=== PATIENT | female | born 1955 | race Caucasian/White ===

== ENCOUNTER 2020-01-07 12:09 | Outpatient (CLI) | payer OTHER, SELFPAY ==
[2020-01-07 12:32] LABS: Hematocrit 38.5 % (37.0-47.0); Hemoglobin 11.6 g/dL (12.0-15.0); Mean Corpuscular HGB Conc 30.1 g/dl (32-36); Mean Corpuscular Hemoglobin 26.8 pg (26-34); Mean Corpuscular Volume 88.9 fl (80-100); Mean Platelet Volume 10.2 fl (7.4-10.4); Platelet Count Result 349 k/mm3 (150-375); Red Blood Count 4.33 M/mm3 (4.2-5.4); Red Cell Distribution Width 15.9 % (11.5-14.5); White Blood Count 10.2 K/mm3 (4.5-10.0)
[2020-01-07 12:44] LABS: Alanine Aminotransferase 12 U/L (4-35); Albumin Level 3.8 g/dL (3.5-5.1); Alkaline Phosphatase 82 U/L (38-126); Aspartate Amino Transferase 17 U/L (14-36); Bilirubin,Total 0.5 mg/dL (0.2-1.3); Blood Urea Nitrogen 21 mg/dL (7-17); Calcium 9.4 mg/dL (8.4-10.2); Carbon Dioxide 22 mmol/L (22-30); Chloride 108 mmol/L (98-107); Cholesterol 170 mg/dL (0-200); Estimated Glomerular Filt Rate 33; Glucose 121 mg/dL (65-105); HDL Direct 32 mg/dL; Potassium 4.2 mmol/L (3.4-5.0); Sodium 143 mmol/L (137-145); Triglycerides 299 mg/dL (<150)
[2020-01-07 12:55] LABS: LDL Cholesterol Direct 94 mg/dL
[2020-01-07 12:59] LABS: Hemoglobin A1C 5.9 % (<5.7)
== END 2020-01-07 12:10 | disposition home or self-care (01) ==
PROVIDERS: PCP Internal Medicine; Visit Provider Internal Medicine
DX: N18.4 Chronic kidney disease, stage 4 (severe) (principal); R73.03 Prediabetes
CPT/HCPCS: 36415; 80053; 80061; 83036; 85027

== ENCOUNTER 2020-07-14 17:32 | Emergency (ER) | payer OTHER, SELFPAY ==
--- NOTE | ~2020-07-14 | CT_ITS ---
EXAMINATION: CT abdomen pelvis wo con DATE: 07/14/2020 20:56 INDICATION: Abdomen pain. Vaginal pain. TECHNIQUE: Computed tomography (CT) of the abdomen and pelvis was performed without intravenous contr ast. The dose-length product was 1212.19 mGy-cm. Automated exposure control and iterative reconstruct ion technique were employed. COMPARISON: CT dated 07/29/2015 FINDINGS: Lung bases unremarkable. Heart size normal. There is mild thickening of the distal esophagu s. No significant pleural or pericardial effusion. No significant vascular abnormality. The liver, spleen, pancreas, adrenal glands and left kidney are unremarkable. There is moderate right hydroureteronephrosis. No obstructing stone or mass is identified. There is a Alexis catheter in the bladder. There is moderate gas in the bladder, likely from catheter insertion. Nonobstructive bowel g as pattern. No lymphadenopathy. 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 There are extensive vascular calcifications. There is abnormal soft tissue i n the left perirectal region. Evaluation for abscess limited without contrast. IMPRESSION: 1. Abnormal soft tissue and possibly fluid in the left perirectal location, suspicious for developing abscess. 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 2: Moderate right hydroureteronephrosis. No obstructing stone or mass identified. 3: Mild thickening of the distal esophagus, suspicious for esophagitis. Reviewed, dictated and finalized at location A. IMPRESSION: 1. Abnormal soft tissue and possibly fluid in the left perirectal location, verena picious for developing abscess. 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 2: Moderate right hydroureteronephrosis. No obstructing stone or mass identifi ed. 3: Mild thickening of the distal esophagus, suspicious for esophagitis.
--- NOTE | ~2020-07-14 | XR_ITS ---
EXAMINATION: XR chest 1V portable 07/14/2020 19:51 INDICATION: Fever, nausea, vomiting and diarrhea. PROCEDURE: AP portable chest COMPARISON: 08/04/2015 FINDINGS: The lungs are clear. Central venous catheter tip in the SVC. The cardiomediastinal silhouet te is within normal limits. There are no pleural effusions. There is no pneumothorax suspected. Th ere are degenerative changes of the shoulders. IMPRESSION: 1: NO ACUTE CARDIOPULMONARY DISEASE. Reviewed, dictated and finalized at location A.
[2020-07-14 17:33] VITALS: BP 94/61; PULSE 84; RESP 22; TEMP 36.1; O2SAT 95
--- NOTE | 2020-07-14 17:51 | ECG_ITS ---
Measurements Intervals [place] Rate: 126 P: 247 PA: 121 QRS: -69 QRSD: 158 T: 74 QT: 331 QTc: 480 Interpretive Statements ATRIAL TACHYCARDIA/FLUTTER WITH RAPID VENTRICULAR RESPONSE RIGHT BUNDLE BRANCH BLOCK LEFT ANTERIOR FASCICULAR BLOCK BASELINE ARTIFACT- I, II, III, AVR, AVL ABNORMAL ECG Electronically Signed On 07-15-2020 7:17:00 CDT by Jeremy Hallman D.O.
--- NOTE | 2020-07-14 18:05 | ED.GENADULT ---
HPI - General Adult General Chief complaint: Nausea/Vomiting/Diarrhea Stated complaint: WEAKNESS Time Seen by Provider: 07/14/20 17:57 Source: patient History of Present Illness HPI narrative: Patient is a 65 y/o female complaining of severe pain and burning with urination for several years. She states the she went to PCP and another hospital, but did not get a definitive diagnosis. She also has been having diarrhea for 1 month, as wells as some right sided abdominal pain. She has no fever, chills. She states that her pain has been worse for last month. She had one episode of diarrhea. She has remote history of cervical cancer for which she received radiation and chemo. Related Data Home Medications Medication Instructions Recorded Confirmed acetaminophen 500 mg capsule 500 mg PO Q6H PRN 01/11/20 07/14/20 calcitriol 0.25 mcg capsule 0.25 mcg PO DAILY 01/11/20 07/14/20 Allergies Allergy/AdvReac Type Severity Reaction Status Date / Time formaldehyde Allergy Severe HIVES Verified 07/14/20 14:24 chlordiazepoxide Allergy Unknown Unknown Verified 07/14/20 14:24 Review of Systems Constitutional: Constitutional: Denies chills, Denies fever(s), Denies headache(s) and Denies weakness Eyes: Eyes: Denies blurry vision ENT: Denies headache(s) and Denies neck pain Cardiovascular: Cardiovascular: Denies chest pain and Denies dyspnea Respiratory: Respiratory: Denies cough and Denies dyspnea Gastrointestinal: Gastrointestinal: Denies abdominal pain, Reports diarrhea, Denies nausea and Denies vomiting Genitourinary: Genitourinary: Denies hematuria and Reports dysuria Musculoskeletal: Musculoskeletal: Denies back pain and Denies neck pain Neurologic: Denies headache(s) and Denies weakness [facility] Social History Social History Smoking status: Never smoker Alcohol intake: never Exam Const: General: no acute distress and ill appearing Nutritional Appearance: obese Orientation/consciousness: oriented to person, oriented to place, oriented to time and patient oriented x3 HENMT: Head: normocephalic Ears: external ears normal General nose exam: Normal external nose present Eyes: General: appearance normal, both eyes and all related structures Conjunctivae: conjunctivae normal Neck: Neck: normal visual inspection and full ROM Chest: Chest palpation & inspection: normal inspection of the chest and no tenderness Resp: Effort & Inspection: normal respiratory effort Auscultation: clear to auscultation bilaterally Cardio: Rate: regular rate Rhythm: regular rhythm GI: GI Palp: No abdominal tenderness and Yes Soft to palpation : Other: erythema in perineum, some purulent drainage from left perineum Skin: General skin exam: normal color and turgor normal Neuro: General: oriented to person, oriented to place, oriented to time and patient oriented x3 Cognition (Neuro): normal cognition Extrem: General: normal to inspection, full ROM and no pedal edema Psych: Appearance: grossly normal Mental Status: mental status grossly normal Affect: normal affect Course Consultations Consultation #1: Discussed with Dr. Howard (surgery), who recommends transfer. Date: 07/14/20 Time: 21:20 Consultation #2: Discussed with Dr. Webster (surgery at [facility]), who agree to accept if bed is available. Date: 07/14/20 Time: 21:30 Vital Signs Vital signs: Vital Signs Temperature 36.1 C L 07/14/20 17:33 Pulse Rate 84 07/14/20 17:33 Respiratory Rate 22 H 07/14/20 17:33 Blood Pressure 94/61 L 07/14/20 17:33 Pulse Oximetry 95 07/14/20 17:33 Temperature 36.9 C 07/15/20 02:21 Pulse Rate 111 H 07/15/20 02:21 Respiratory Rate 20 07/15/20 02:21 Blood Pressure 110/87 07/15/20 02:21 Pulse Oximetry 98 07/15/20 02:21 Medical Decision Making Vital Signs Vital Signs: Vital Signs Temperature 36.1 C L 07/14/20 17:33 Pulse Rate 84 07/14/20 17:33 Respirato
[2020-07-14 18:40] LABS: Hematocrit 32.8 % (37.0-47.0); Hemoglobin 9.9 g/dL (12.0-15.0); Mean Corpuscular HGB Conc 30.2 g/dl (32-36); Mean Corpuscular Hemoglobin 25.6 pg (26-34); Mean Platelet Volume 10.5 fl (7.4-10.4); Platelet Count Result 759 k/mm3 (150-375); Red Blood Count 3.86 M/mm3 (4.2-5.4); White Blood Count 24.5 K/mm3 (4.5-10.0)
[2020-07-14 18:54] LABS: INR 1.2; Prothrombin Time 15.2 Seconds (11.1-14.7)
[2020-07-14 18:55] LABS: Partial Thromboplastin Time 29.9 SECONDS (22.3-36.8)
[2020-07-14 18:57] LABS: Alanine Aminotransferase 60 U/L (4-35); Albumin Level 3.6 g/dL (3.5-5.1); Alkaline Phosphatase 202 U/L (38-126); Anion Gap 21 mmol/L (8-16); Aspartate Amino Transferase 50 U/L (14-36); Bilirubin,Total 0.5 mg/dL (0.2-1.3); Blood Urea Nitrogen 118 mg/dL (7-17); Calcium 10.5 mg/dL (8.4-10.2); Carbon Dioxide 10 mmol/L (22-30); Chloride 107 mmol/L (98-107); Estimated CRCL calculation 11 ml/min; Estimated Glomerular Filt Rate 7; Glucose 207 mg/dL (65-105); Potassium 6.9 mmol/L (3.4-5.0); Sodium 138 mmol/L (137-145)
[2020-07-14 18:58] LABS: Lactic Acid Reflex 7.5 mmol/L (0.7-2.1)
[2020-07-14 19:15] LABS: Anisocytosis 2+ (NORMAL); Band Neutrophils Percent 1 % (0-6); Monocytes Absolute Manual 1.71 K/mm3 (0.1-0.90); Monocytes Percent Manual 7 % (3-9); Neutrophils Absolute Manual 15.68 K/mm3 (1.7-7.2); Neutrophils Percent Manual 63 % (46-73); Platelet Estimate Increased (Adequate); Total Cells Counted 100
[2020-07-14 19:20] LABS: CRP 16.8 mg/dL (<1.0)
[2020-07-14] MEDS: CALCIUM GLUCONATE 1,000 MG/10 ML VIAL 1000 MG IV PUSH (20:17)
[2020-07-14] MEDS: DEXTROSE 50% 25 GM/50 ML SYRINGE IV PUSH (20:17)
[2020-07-14] MEDS: SODIUM POLYSTYRENE SULFONONATE 15 GM/60 ML BTL 30 GM PO (20:18)
[2020-07-14] MEDS: INSULIN HUMAN REGULAR (*BKC) 100 UNITS/ML 10 UNITS IV PUSH (20:18)
[2020-07-14] MEDS: SODIUM BICARBONATE 8.4% 50 MEQ/50 ML VIAL IV PUSH (20:18)
[2020-07-14 21:21] VITALS: BP 95/59; PULSE 112; RESP 20; O2SAT 98
[2020-07-14 21:36] LABS: Reflex Lactic Acid Yes or No Add Lactic
[2020-07-14 22:28] VITALS: BP 107/52; PULSE 106; RESP 20
[2020-07-14 22:30] LABS: Lactic Acid 4.2 mmol/L (0.7-2.1)
--- NOTE | 2020-07-14 23:45 | PC.NURSE ---
Patient received all 3,400mL of LR.
[2020-07-14 23:47] VITALS: BP 112/48; PULSE 112; RESP 20; O2SAT 100
--- NOTE | 2020-07-15 00:37 | PC.NURSE ---
Patient still does not have enough urine in ash catheter at this time for a urine analysis.
[2020-07-15 01:05] LABS: Add Urine Microscopic? YES; Appearance Urine Turbid (Clear); Bilirubin Urine Negative (Negative); Blood Urine 1+ (Negative); Glucose Urine UA Negative (Negative); Ketones Urine Trace mg/dL (Negative); Leukocyte Esterase Ur 2+ LEU/UL (Negative); Nitrate Urine Negative (Negative); Protein Urine 3+ mg/dL (Negative); Specific Grav Ur 1.022 (1.001-1.035); Urobilinogen Urine Negative mg/dL (<2.0)
[2020-07-15 01:06] VITALS: BP 108/50; PULSE 110; RESP 20; O2SAT 100
[2020-07-15 01:07] LABS: Squamous Epithelial Cell Urine Few /hpf (Few)
[2020-07-15 01:09] LABS: Color Urine Light Brown (Yellow); WBC Urine 51-75 /hpf (0-3)
[2020-07-15 02:21] VITALS: BP 110/87; PULSE 111; RESP 20; TEMP 36.9; O2SAT 98
== END 2020-07-15 02:23 | disposition short-term general hospital (02) ==
PROVIDERS: Emergency Provider Emergency Medicine; PCP Internal Medicine
DX: A41.9 Sepsis, unspecified organism (principal); N17.9 Acute kidney failure, unspecified; E87.5 Hyperkalemia; K61.1 Rectal abscess; N76.89 Other specified inflammation of vagina and vulva; I47.1 Supraventricular tachycardia; I45.2 Bifascicular block; I48.92 Unspecified atrial flutter
CPT/HCPCS: 36415; 51703; 71045; 74176; 80053; 81001; 83605; 85025; 85610; 85730; 86140; 87040; 87077; 87086; 87088; 87186; 93005; 96361; 96365; 96368; 96375; 99285; A9270; J0610; J1815; J2543; J3370; J7120